=== PATIENT | male | born 1995 | race Two or more races ===

== ENCOUNTER → 2017-02-04 | Outpatient (REF) | payer OTHER | LOC: M LAB REF 16:59 | PROVIDERS: ATTEND Surgery | DX: Z20.2 Contact with and (suspected) exposure to infections with a predominantly sexual mode of transmission (principal) ==

== ENCOUNTER 2017-05-13 11:43 | Emergency (ER) | payer MEDICAID, OTHER ==
[2017-05-13] MEDS ORDERED: PHENYLEPHRINE INJ 10MG/ML VIAL (J2370) SC (13:00)
== END 2017-05-13 15:24 | disposition home or self-care (01) ==
LOC: M ED 11:43
DX: N48.30 Priapism, unspecified (principal); Z98.890 Other specified postprocedural states
CPT/HCPCS: 96372

== ENCOUNTER → 2017-06-15 | Outpatient (CLI) | payer MEDICAID | LOC: M OUTALCOH 07:55 | DX: Z13.9 Encounter for screening, unspecified (principal); F15.10 Other stimulant abuse, uncomplicated ==

== ENCOUNTER 2017-07-06 09:02 | Outpatient (RCR) | payer MEDICAID | END 2017-07-13 | LOC: M OUTALCOH 09:02 | DX: Z03.89 Encounter for observation for other suspected diseases and conditions ruled out (principal) | CPT/HCPCS: H0050 ==

== ENCOUNTER 2017-07-16 15:00 | Outpatient (RCR) | payer MEDICAID | END 2017-08-13 | LOC: M OUTALCOH 07-24 16:00 | DX: F15.10 Other stimulant abuse, uncomplicated (principal) ==

== ENCOUNTER → 2018-07-19 | Outpatient (REF) | payer MEDICAID, OTHER ==
[2018-07-19 19:35] LABS: APPEARANCE, URINE CLEAR (CLEAR); BACTERIA, URINE AUTO NEGATIVE (NEGATIVE); BILIRUBIN, URINE AUTO NEGATIVE (NEGATIVE); BLOOD, URINE BLOOD NEGATIVE (NEGATIVE); COLOR, URINE YELLOW (YELLOW); GLUCOSE, URINE (UA) AUTO NEGATIVE (NEGATIVE); KETONE, URINE AUTO NEGATIVE (NEGATIVE); LEUKOCYTE ESTERASE, URINE AUTO NEGATIVE (NEGATIVE); MUCUS, URINE SMALL (NEGATIVE); NITRITE, URINE AUTO NEGATIVE (NEGATIVE); PROTEIN, URINE AUTO NEGATIVE (NEGATIVE); RBC, URINE AUTO 0 /HPF (0-3); SPECIFIC GRAVITY URINE AUTO 1.019 (1.002-1.035); SQUAMOUS EPITHELIAL CELL UR AU 0 /HPF (0-6); UROBILINOGEN, URINE AUTO 0.2 mg/dL (0.0-2.0); WBC, URINE AUTO 0 /HPF (0-3)
[2018-07-19 19:38] LABS: BASO % 0.5 % (0.0-1.0); EOS # 0.1 10^3/uL (0.0-0.50); EOS % 1.4 % (0.0-3.0); HEMATOCRIT 45.6 % (42.0-52.0); HEMOGLOBIN 15.5 g/dl (13.5-17.5); LYMPH # 3.2 10^3/uL (1.5-6.5); LYMPH % 39.4 % (24.0-44.0); MEAN CORPUSCULAR VOLUME 91.2 fl (80.0-96.0); MONO # 0.6 10^3/uL (0.0-0.8); MONO % 7.4 % (0.0-5.0); NEUTROPHILS # 4.1 10^3/uL (1.8-7.7); NEUTROPHILS % 51.1 % (36.0-66.0); PLATELET COUNT, AUTOMATED 261 10^3/uL (150-450); WHITE BLOOD COUNT 8.1 10^3/uL (4.0-10.0)
[2018-07-19 19:53] LABS: ALBUMIN 3.9 GM/DL (3.2-5.2); ALT/SGPT 84 U/L (12-78); BILIRUBIN,TOTAL 0.4 MG/DL (0.2-1.0); BLOOD UREA NITROGEN 17 MG/DL (7-18); CALCIUM LEVEL 8.9 MG/DL (8.5-10.1); CARBON DIOXIDE LEVEL 27 MEQ/L (21-32); CHLORIDE LEVEL 110 MEQ/L (98-107); CHOLESTEROL LEVEL 183 MG/DL (<200); CHOLESTEROL RISK RATIO 4.159 (<5); FREE T4 1.11 NG/DL (0.76-1.46); GLOMERULAR FILTRATION RATE > 60.0 (>60); GLUCOSE, FASTING 100 MG/DL (70-100); HDL CHOLESTEROL 44 MG/DL (>40); LDL CHOLESTEROL 124 MG/DL (<100); NON-HDL-C 139 MG/DL; POTASSIUM SERUM 4.3 MEQ/L (3.5-5.1); SODIUM LEVEL 143 MEQ/L (136-145); TOTAL PROTEIN 7.9 GM/DL (6.4-8.2); TRIGLYCERIDES LEVEL 73 MG/DL (<150)
[2018-07-19 19:54] LABS: TOTAL 25(OH) VITAMIN D 11.9 NG/ML (30.0-100.0)
[2018-07-19 20:09] LABS: HEMOGLOBIN A1c 4.8 %
[2018-07-22 00:06] LABS: Lyme Disease IgG/IgM Antibodie <0.91 ISR (0.00-0.90); Lyme Disease IgM Ab Quantitati <0.80 index (0.00-0.79)
== END ==
LOC: M LAB REF 18:49
PROVIDERS: ATTEND Family Medicine
DX: Z13.228 Encounter for screening for other metabolic disorders (principal)

== ENCOUNTER 2018-07-28 19:28 | Emergency (ER) | payer OTHER ==
[~2018-07-28] VITALS: Ht 175.3 cm; Wt 127.3 kg
[2018-07-28 19:53] LABS: HEMATOCRIT 43.8 % (42.0-52.0); HEMOGLOBIN 14.9 g/dl (13.5-17.5); MEAN CORPUSCULAR VOLUME 91.3 fl (80.0-96.0); PLATELET COUNT, AUTOMATED 276 10^3/uL (150-450); WHITE BLOOD COUNT 11.8 10^3/uL (4.0-10.0)
[2018-07-28] MEDS ORDERED: ADACEL/BOOSTRIX VACCINE (DIPHTH/PERTUSS/ACELL/TETANUS)0.5ML SYR (90715) IM ONE (20:15)
[2018-07-28 20:17] LABS: ATYPICAL LYMPH 2 % (0-5); BASOPHILS 1 % (0-4); LYMPHOCYTES 41 % (16-52); MONOCYTES 8 % (0-8); NEUTROPHILS 48 % (35-75)
[2018-07-28 20:19] LABS: PLATELET ESTIMATE NORMAL (NORMAL)
[2018-07-28 20:33] LABS: ALBUMIN 4.4 GM/DL (3.2-5.2); ALT/SGPT 68 U/L (12-78); BILIRUBIN,DIRECT < 0.1 MG/DL (0.0-0.2); BILIRUBIN,TOTAL 0.6 MG/DL (0.2-1.0); BLOOD UREA NITROGEN 20 MG/DL (7-18); CALCIUM LEVEL 9.2 MG/DL (8.5-10.1); CARBON DIOXIDE LEVEL 28 MEQ/L (21-32); CHLORIDE LEVEL 106 MEQ/L (98-107); CREATININE FOR GFR 1.16 MG/DL (0.70-1.30); GLOMERULAR FILTRATION RATE > 60.0 (>60); GLUCOSE, FASTING 89 MG/DL (70-100); LIPASE 181 U/L (73-393); POTASSIUM SERUM 3.9 MEQ/L (3.5-5.1); SODIUM LEVEL 140 MEQ/L (136-145); TOTAL PROTEIN 7.3 GM/DL (6.4-8.2)
[2018-07-28] MEDS ORDERED: ISOVUE-370 76% 100ML VIAL (Q9967) As Ordered ONE (20:41)
[2018-07-28] MEDS ORDERED: LIDOCAINE 1% MDV 20ML VIAL As Ordered ONE (22:04)
[2018-07-28] MEDS ORDERED: LIDOCAINE 1% MDV 20ML VIAL SC ONE (22:15)
[2018-07-28 22:31] VITALS: BP 134/80
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
== END 2018-07-28 23:12 | disposition home or self-care (01) ==
LOC: M ED 19:28
DX: S31.119A Laceration without foreign body of abdominal wall, unspecified quadrant without penetration into peritoneal cavity, initial encounter (principal); W26.0XXA Contact with knife, initial encounter; Y92.89 Other specified places as the place of occurrence of the external cause; Y93.89 Activity, other specified; Y99.0 Civilian activity done for income or pay
CPT/HCPCS: 12001; 71260; 74177; 80047; 80048; 80076; 83690; 85025; 90471; 90715; 93041; 99284; Q9967

== ENCOUNTER 2018-08-11 14:42 | Emergency (ER) | payer OTHER ==
[~2018-08-11] VITALS: Ht 175.3 cm; Wt 127.3 kg
[2018-08-11 14:43] VITALS: BP 143/77
[2018-08-11] MEDS ORDERED: CYCL5TAB (15:01)
== END 2018-08-11 15:15 | disposition home or self-care (01) ==
LOC: M ED 14:42
DX: Z48.02 Encounter for removal of sutures (principal); Z79.899 Other long term (current) drug therapy

== ENCOUNTER 2021-11-03 10:24 | Inpatient (IN) | payer OTHER ==
[~2021-11-03] VITALS: Ht 175.3 cm; Wt 122.7 kg
[~2021-11-03 10:24] MED LIST: BUSP10TA PO; BUSP30TA PO; CYCL5TAB; FLUO20CA22 PO; FLUO40CA PO; HALO1TAB19 PO; HALO5TAB33 PO; HYDR50TA70 PO; MIRT-10 PO; MIRT-62 PO; PROP20TA PO; PROP20TA72 PO; QUET200T2 PO; QUET400T2 PO; TRAZ-252 PO
[2021-11-03] MEDS ORDERED: FLUoxetine 20MG CAP PO ONE (10:55)
[2021-11-03] MEDS ORDERED: busPIRone 10 MG TAB PO ONE (10:55)
[2021-11-03] MEDS ORDERED: QUEtiapine FUMARATE 200 MG TAB PO ONE ×2 (10:55→21:40)
[2021-11-03] MEDS ORDERED: PROPRANOLOL 20 MG TAB PO ONE (10:55)
[2021-11-03 11:01] LABS: HEMATOCRIT 44.5 % (42.0-52.0); HEMOGLOBIN 14.9 g/dl (13.5-17.5); MEAN CORPUSCULAR HEMOGLOBIN 31.1 pg (27.0-33.0); MEAN CORPUSCULAR HGB CONC 33.5 g/dl (32.0-36.5); MEAN CORPUSCULAR VOLUME 92.9 fl (80.0-96.0); PLATELET COUNT, AUTOMATED 297 10^3/uL (150-450); RED BLOOD COUNT 4.79 10^6/uL (4.30-6.10); WHITE BLOOD COUNT 12.9 10^3/uL (4.0-10.0)
[2021-11-03 11:31] LABS: AMPHETAMINES LEVEL URINE POSITIVE (NEGATIVE); BARBITURATES URINE NEGATIVE (NEGATIVE); BENZODIAZEPINES URINE NEGATIVE (NEGATIVE); CANNABINOIDS URINE POSITIVE (NEGATIVE); COCAINE METABOLITE URINE NEGATIVE (NEGATIVE); METHADONE URINE NEGATIVE (NEGATIVE); OPIATES URINE NEGATIVE (NEGATIVE); PHENCYCLIDINE URINE NEGATIVE (NEGATIVE)
[2021-11-03 11:41] LABS: RSV AMPLIFICATION NEGATIVE (NEGATIVE)
[2021-11-03 12:00] LABS: ACETAMINOPHEN LEVEL < 2.0 UG/ML (10.0-30.0); ALBUMIN 4.3 GM/DL (3.2-5.2); ALT/SGPT 49 U/L (12-78); BILIRUBIN,DIRECT 0.2 MG/DL (0.0-0.2); BILIRUBIN,TOTAL 0.6 MG/DL (0.2-1.0); BLOOD UREA NITROGEN 11 MG/DL (7-18); CALCIUM LEVEL 9.7 MG/DL (8.5-10.1); CARBON DIOXIDE LEVEL 26 MEQ/L (21-32); CHLORIDE LEVEL 106 MEQ/L (98-107); CREATININE FOR GFR 1.15 MG/DL (0.70-1.30); ETHYL ALCOHOL (ETHANOL) 0.004 % (0.000-0.010); GLOMERULAR FILTRATION RATE > 60.0 (>60); GLUCOSE, FASTING 104 MG/DL (70-100); POTASSIUM SERUM 4.2 MEQ/L (3.5-5.1); SALICYLATE LEVEL < 1.7 MG/DL (5.0-30.0); SODIUM LEVEL 138 MEQ/L (136-145)
[2021-11-03] MEDS ORDERED: HALO5TAB33 PO (21:41)
[2021-11-03] MEDS ORDERED: HYDR50TA70 PO (21:41)
[2021-11-03] MEDS ORDERED: PROP20TA72 PO (21:41)
[2021-11-03] MEDS ORDERED: QUET200T2 PO ×2 (21:41)
[2021-11-03] MEDS ORDERED: FLUO40CA PO (21:41)
[2021-11-03] MEDS ORDERED: BUSP30TA PO (21:41)
[2021-11-03] MEDS ORDERED: MIRT-62 PO (21:41)
[2021-11-03] MEDS ORDERED: TRAZ-252 PO (21:41)
[2021-11-03] MEDS ORDERED: PATIENT COMMENT (21:43)
[2021-11-03] MEDS ORDERED: HOME MED LIST COMPLETE! XX SCH (21:45)
[2021-11-04] MEDS ORDERED: hydrOXYzine 50 MG TAB PO PRN (07:20)
[2021-11-04] MEDS: busPIRone 10 MG TAB PO SCH ×2 (09:10→21:19)
[2021-11-04] MEDS: FLUoxetine 20MG CAP PO SCH (09:10)
[2021-11-04] MEDS: QUEtiapine FUMARATE 200 MG TAB PO SCH (09:10)
[2021-11-04] MEDS: PROPRANOLOL 20 MG TAB PO SCH (09:29)
[2021-11-04] MEDS ORDERED: traZODone 50 MG TAB PO SCH (21:00)
[2021-11-04] MEDS ORDERED: QUEtiapine FUMARATE 200 MG TAB PO SCH (21:00)
[2021-11-04] MEDS ORDERED: MIRTAZAPINE 15 MG TAB PO SCH (21:00)
[2021-11-05] MEDS: PROPRANOLOL 20 MG TAB PO SCH ×3 (00:31→11:43)
[2021-11-05] MEDS: busPIRone 10 MG TAB PO SCH (09:42)
[2021-11-05] MEDS: QUEtiapine FUMARATE 200 MG TAB PO SCH (09:42)
[2021-11-05] MEDS: FLUoxetine 20MG CAP PO SCH (09:43)
[2021-11-05] MEDS ORDERED: MOM 30ML SUSPENSION UDC PO PRN (16:15)
[2021-11-05] MEDS ORDERED: diphenhydrAMINE 25MG CAP PO PRN (16:15)
[2021-11-05] MEDS ORDERED: ACETAMINOPHEN TAB 650MG DOSE (2X325MG) PO PRN (16:15)
[2021-11-05] MEDS ORDERED: MAALOX 30 ML SUSP *UDC PO PRN (16:15)
[2021-11-06] MEDS ORDERED: MIRTAZAPINE 15 MG TAB PO ONE
[2021-11-06] MEDS ORDERED: traZODone 25MG PER 1/2 TABLET PO ONE
[2021-11-06] MEDS ORDERED: PROPRANOLOL 20 MG TAB PO ONE
[2021-11-06] MEDS ORDERED: busPIRone 10 MG TAB PO ONE
[2021-11-06] MEDS ORDERED: FLUoxetine 20MG CAP PO SCH (09:00)
[2021-11-06] MEDS ORDERED: PROPRANOLOL 20 MG TAB PO SCH (09:00)
[2021-11-06] MEDS ORDERED: NICOTINE 21MG/24HR 1 EA TRANSDERMAL TD SCH ×2 (09:00)
[2021-11-06] MEDS ORDERED: QUEtiapine FUMARATE 200 MG TAB PO SCH ×2 (09:00→21:00)
[2021-11-06] MEDS ORDERED: busPIRone 10 MG TAB PO SCH (09:00)
[2021-11-06] MEDS ORDERED: hydrOXYzine 50 MG TAB PO PRN (10:45)
[2021-11-06] MEDS ORDERED: MOM 30ML SUSPENSION UDC PO PRN (11:55)
[2021-11-06] MEDS ORDERED: MAALOX 30 ML SUSP *UDC PO PRN (11:55)
[2021-11-06 12:37] LABS: RSV AMPLIFICATION NEGATIVE (NEGATIVE)
[2021-11-06] MEDS: LURASIDONE 20 MG TAB (LATUDA) PO SCH (17:48)
[2021-11-06 17:59] VITALS: BP 169/83
[2021-11-06] MEDS: MIRTAZAPINE 15 MG TAB PO SCH (20:06)
[2021-11-06] MEDS: PROPRANOLOL 20 MG TAB PO SCH (20:06)
[2021-11-06] MEDS: busPIRone 10 MG TAB PO SCH (20:06)
[2021-11-06] MEDS: ACETAMINOPHEN TAB 650MG DOSE (2X325MG) PO PRN (20:07)
[2021-11-06] MEDS ORDERED: traZODone 50 MG TAB PO SCH (21:00)
[2021-11-06] MEDS ORDERED: MIRTAZAPINE 15 MG TAB PO SCH (21:00)
[2021-11-07] MEDS: hydrOXYzine 50 MG TAB PO PRN ×2 (00:35→11:45)
[2021-11-07] MEDS: traZODone 50 MG TAB PO PRN ×2 (01:20→20:17)
[2021-11-07] MEDS: ACETAMINOPHEN TAB 650MG DOSE (2X325MG) PO PRN ×2 (06:29→18:28)
[2021-11-07 07:04] VITALS: BP 141/79
[2021-11-07] MEDS: NICOTINE 21MG/24HR 1 EA TRANSDERMAL TD SCH (08:10)
[2021-11-07] MEDS: PROPRANOLOL 20 MG TAB PO SCH ×2 (08:10→20:17)
[2021-11-07] MEDS: busPIRone 10 MG TAB PO SCH ×2 (08:10→20:17)
[2021-11-07] MEDS: FLUoxetine 20MG CAP PO SCH (08:11)
[2021-11-07 08:21] VITALS: BP 141/79
[2021-11-07] MEDS: LURASIDONE 20 MG TAB (LATUDA) PO SCH (17:44)
[2021-11-07 18:35] VITALS: BP 127/60
[2021-11-07] MEDS: MIRTAZAPINE 15 MG TAB PO SCH (20:17)
[2021-11-08] MEDS: hydrOXYzine 50 MG TAB PO PRN ×2 (02:34→16:20)
[2021-11-08] MEDS: ACETAMINOPHEN TAB 650MG DOSE (2X325MG) PO PRN ×2 (06:40→13:42)
[2021-11-08 06:41] VITALS: BP 118/75
[2021-11-08] MEDS: FLUoxetine 20MG CAP PO SCH (08:09)
[2021-11-08] MEDS: busPIRone 10 MG TAB PO SCH ×2 (08:09→20:11)
[2021-11-08] MEDS: NICOTINE 21MG/24HR 1 EA TRANSDERMAL TD SCH (08:10)
[2021-11-08] MEDS: PROPRANOLOL 20 MG TAB PO SCH ×2 (08:10→20:11)
[2021-11-08] MEDS ORDERED: LURASIDONE HCL 40MG TAB (LATUDA) PO SCH (18:00)
[2021-11-08 19:12] VITALS: BP 148/87
[2021-11-08] MEDS: MIRTAZAPINE 15 MG TAB PO SCH (20:12)
[2021-11-08] MEDS ORDERED: traZODone 50 MG TAB PO SCH (21:00)
[2021-11-09] MEDS: hydrOXYzine 50 MG TAB PO PRN (02:38)
[2021-11-09 06:33] VITALS: BP 138/75
[2021-11-09] MEDS: FLUoxetine 20MG CAP PO SCH (08:13)
[2021-11-09] MEDS: PROPRANOLOL 20 MG TAB PO SCH ×2 (08:13→20:29)
[2021-11-09] MEDS: busPIRone 10 MG TAB PO SCH ×2 (08:13→20:29)
[2021-11-09] MEDS: NICOTINE 21MG/24HR 1 EA TRANSDERMAL TD SCH (08:14)
[2021-11-09] MEDS: IBUPROFEN 800 MG TAB PO PRN (08:14)
[2021-11-09] MEDS: ACETAMINOPHEN TAB 650MG DOSE (2X325MG) PO PRN (14:10)
[2021-11-09] MEDS: LURASIDONE 20 MG TAB (LATUDA) PO SCH (17:54)
[2021-11-09] MEDS: traZODone 100 MG TAB PO SCH (20:24)
[2021-11-10] MEDS: hydrOXYzine 50 MG TAB PO PRN (02:34)
[2021-11-10 06:23] VITALS: BP 128/60
[2021-11-10] MEDS: busPIRone 10 MG TAB PO SCH ×2 (08:49→20:05)
[2021-11-10] MEDS: FLUoxetine 20MG CAP PO SCH (08:49)
[2021-11-10] MEDS: PROPRANOLOL 20 MG TAB PO SCH ×2 (08:50→20:06)
[2021-11-10] MEDS: NICOTINE 21MG/24HR 1 EA TRANSDERMAL TD SCH (08:50)
[2021-11-10] MEDS: IBUPROFEN 800 MG TAB PO PRN (09:24)
[2021-11-10] MEDS: LURASIDONE 20 MG TAB (LATUDA) PO SCH (17:14)
[2021-11-10 19:54] VITALS: BP 149/68
[2021-11-10] MEDS: traZODone 100 MG TAB PO SCH (20:05)
[2021-11-10] MEDS: MIRTAZAPINE 15 MG TAB PO PRN (20:05)
[2021-11-11] MEDS: hydrOXYzine 50 MG TAB PO PRN (01:20)
[2021-11-11 06:23] VITALS: BP 105/59
[2021-11-11] MEDS: busPIRone 10 MG TAB PO SCH ×2 (07:59→20:33)
[2021-11-11] MEDS: LURASIDONE 20 MG TAB (LATUDA) PO SCH ×2 (07:59→17:52)
[2021-11-11] MEDS: FLUoxetine 20MG CAP PO SCH (08:03)
[2021-11-11] MEDS: PROPRANOLOL 20 MG TAB PO SCH ×2 (08:03→20:33)
[2021-11-11] MEDS: NICOTINE 21MG/24HR 1 EA TRANSDERMAL TD SCH (08:49)
[2021-11-11] MEDS: IBUPROFEN 800 MG TAB PO PRN ×2 (09:09→18:27)
[2021-11-11] MEDS: OLANZapine ORAL DISINTEGRATING TAB 5MG PO PRN (15:46)
[2021-11-11 16:45] VITALS: BP 149/65
[2021-11-11] MEDS: ACETAMINOPHEN TAB 650MG DOSE (2X325MG) PO PRN (16:58)
[2021-11-11] MEDS: traZODone 100 MG TAB PO SCH (20:31)
[2021-11-11] MEDS: MIRTAZAPINE 15 MG TAB PO PRN (20:33)
[2021-11-12] MEDS: hydrOXYzine 50 MG TAB PO PRN (03:17)
[2021-11-12 06:23] VITALS: BP 115/62
[2021-11-12] MEDS: busPIRone 10 MG TAB PO SCH (08:05)
[2021-11-12 08:06] VITALS: BP 115/62
[2021-11-12] MEDS: FLUoxetine 20MG CAP PO SCH (08:06)
[2021-11-12] MEDS: PROPRANOLOL 20 MG TAB PO SCH (08:06)
[2021-11-12] MEDS: NICOTINE 21MG/24HR 1 EA TRANSDERMAL TD SCH (08:07)
[2021-11-12] MEDS: OLANZapine ORAL DISINTEGRATING TAB 5MG PO PRN (08:10)
[2021-11-12] MEDS: LURASIDONE 20 MG TAB (LATUDA) PO SCH (08:12)
[2021-11-12] MEDS ORDERED: NICO21PAT TD (09:35)
[2021-11-12] MEDS ORDERED: ZYPR5TAB2 PO (09:35)
[2021-11-12] MEDS ORDERED: LATU20TA PO ×2 (09:35)
[2021-11-12] MEDS ORDERED: TRAZ-257 PO (09:35)
[2021-11-12] MEDS ORDERED: FLUO20CA22 PO (09:35)
[2021-11-12] MEDS: IBUPROFEN 800 MG TAB PO PRN (11:12)
[2021-11-13] MEDS ORDERED: LATU1TAB PO (20:38)
== END 2021-11-12 12:25 | disposition home or self-care (01) | DRG 750 ==
LOC: M ED 10:24 → EDBD 10:24 → M ED INP 11-05 16:14 → UNDOADMIN 11-05 16:14 → M ED INP 11-06 11:55 → M PSY 11-06 13:02
PROVIDERS: ADMIT Student in an Organized Health Care Education/Training Program; ATTEND Psychiatry & Neurology Psychiatry
DX: F20.9 Schizophrenia, unspecified (principal); E66.01 Morbid (severe) obesity due to excess calories; I10 Essential (primary) hypertension; F12.90 Cannabis use, unspecified, uncomplicated; F43.10 Post-traumatic stress disorder, unspecified; F15.90 Other stimulant use, unspecified, uncomplicated; Z79.899 Other long term (current) drug therapy; Z68.39 Body mass index [BMI] 39.0-39.9, adult; F41.9 Anxiety disorder, unspecified

== ENCOUNTER 2021-11-19 10:30 | Inpatient (IN) | payer OTHER ==
[~2021-11-19] VITALS: Ht 175.3 cm; Wt 97.5 kg
[~2021-11-19 10:30] MED LIST changes: +LATU1TAB PO; +LATU20TA PO; +NICO21PAT TD; +PATIENT COMMENT; +TRAZ-257 PO; +ZYPR5TAB2 PO
[2021-11-19 11:21] LABS: HEMATOCRIT 40.5 % (42.0-52.0); HEMOGLOBIN 13.7 g/dl (13.5-17.5); MEAN CORPUSCULAR HEMOGLOBIN 31.1 pg (27.0-33.0); MEAN CORPUSCULAR HGB CONC 33.8 g/dl (32.0-36.5); MEAN CORPUSCULAR VOLUME 91.8 fl (80.0-96.0); PLATELET COUNT, AUTOMATED 251 10^3/uL (150-450); RED BLOOD COUNT 4.41 10^6/uL (4.30-6.10); WHITE BLOOD COUNT 10.9 10^3/uL (4.0-10.0)
[2021-11-19 11:54] LABS: RSV AMPLIFICATION NEGATIVE (NEGATIVE)
[2021-11-19 12:11] LABS: AMPHETAMINES LEVEL URINE POSITIVE (NEGATIVE); BARBITURATES URINE NEGATIVE (NEGATIVE); BENZODIAZEPINES URINE NEGATIVE (NEGATIVE); CANNABINOIDS URINE POSITIVE (NEGATIVE); COCAINE METABOLITE URINE NEGATIVE (NEGATIVE); METHADONE URINE NEGATIVE (NEGATIVE); OPIATES URINE NEGATIVE (NEGATIVE); PHENCYCLIDINE URINE NEGATIVE (NEGATIVE)
[2021-11-19 12:16] LABS: ACETAMINOPHEN LEVEL < 2.0 UG/ML (10.0-30.0); ALBUMIN 4.1 GM/DL (3.2-5.2); ALT/SGPT 32 U/L (12-78); ALT/SGPT 33 U/L (12-78); BILIRUBIN,DIRECT 0.1 MG/DL (0.0-0.2); BILIRUBIN,DIRECT 0.2 MG/DL (0.0-0.2); BILIRUBIN,TOTAL 0.4 MG/DL (0.2-1.0); BILIRUBIN,TOTAL 0.5 MG/DL (0.2-1.0); BLOOD UREA NITROGEN 18 MG/DL (7-18); CALCIUM LEVEL 9.3 MG/DL (8.5-10.1); CARBON DIOXIDE LEVEL 27 MEQ/L (21-32); CHLORIDE LEVEL 109 MEQ/L (98-107); CREATININE FOR GFR 0.89 MG/DL (0.70-1.30); ETHYL ALCOHOL (ETHANOL) 0.005 % (0.000-0.010); ETHYL ALCOHOL (ETHANOL) 0.006 % (0.000-0.010); GLOMERULAR FILTRATION RATE > 60.0 (>60); GLUCOSE, FASTING 82 MG/DL (70-100); POTASSIUM SERUM 3.9 MEQ/L (3.5-5.1); SALICYLATE LEVEL < 1.7 MG/DL (5.0-30.0); SODIUM LEVEL 140 MEQ/L (136-145); THYROID STIMULATING HORMONE 0.564 uIU/ML (0.358-3.740); THYROID STIMULATING HORMONE 0.602 uIU/ML (0.358-3.740); TOTAL PROTEIN 7.5 GM/DL (6.4-8.2)
[2021-11-19] MEDS ORDERED: OLAN1TAB16 PO (12:40)
[2021-11-19] MEDS ORDERED: LATU40TA2 PO (12:40)
[2021-11-19] MEDS ORDERED: LATU1TAB PO (12:40)
[2021-11-19] MEDS ORDERED: NICO21DI37 TD (12:40)
[2021-11-19] MEDS ORDERED: HOME MED LIST COMPLETE! XX SCH (12:45)
[2021-11-19] MEDS ORDERED: OLANZapine ORAL DISINTEGRATING TAB 5MG PO ONE (16:25)
[2021-11-20] MEDS ORDERED: MIRTAZAPINE 15 MG TAB PO ONE ×2 (03:05→19:35)
[2021-11-20] MEDS ORDERED: busPIRone 10 MG TAB PO ONE ×2 (03:05→19:35)
[2021-11-20] MEDS ORDERED: LURASIDONE 20 MG TAB (LATUDA) PO ONE ×2 (03:05→19:35)
[2021-11-20] MEDS ORDERED: FLUoxetine 20MG CAP PO ONE (03:05)
[2021-11-20] MEDS: NICOTINE 21MG/24HR 1 EA TRANSDERMAL TD ONE ×2 (03:15→03:24)
[2021-11-20] MEDS ORDERED: OLANZapine 5 MG TAB PO ONE (19:35)
[2021-11-20] MEDS ORDERED: PROPRANOLOL 20 MG TAB PO ONE (19:35)
[2021-11-20] MEDS ORDERED: hydrOXYzine 50 MG TAB PO ONE (19:35)
[2021-11-21] MEDS: LURASIDONE HCL 40MG TAB (LATUDA) PO SCH (09:42)
[2021-11-21] MEDS: FLUoxetine 20MG CAP PO SCH (09:42)
[2021-11-21] MEDS: busPIRone 10 MG TAB PO SCH ×2 (11:58→22:05)
[2021-11-21] MEDS: PROPRANOLOL 20 MG TAB PO SCH ×2 (11:59→21:09)
[2021-11-21] MEDS: OLANZapine 5 MG TAB PO SCH ×2 (11:59→21:09)
[2021-11-21] MEDS: LURASIDONE 20 MG TAB (LATUDA) PO SCH (17:56)
[2021-11-21] MEDS ORDERED: LURASIDONE 20 MG TAB (LATUDA) PO SCH (18:00)
[2021-11-21] MEDS: MIRTAZAPINE 15 MG TAB PO SCH (21:09)
[2021-11-22] MEDS ORDERED: OLANZapine 10 MG TAB PO ONE (05:45)
[2021-11-22] MEDS ORDERED: LORazepam 2 MG/ML VIAL IM STA (07:08)
[2021-11-22] MEDS ORDERED: diphenhydrAMINE 50MG/ML VIAL (J1200) IM STA (07:08)
[2021-11-22] MEDS ORDERED: HALOPERIDOL 5MG/ML VIAL (J1630 PER 1) IM STA (07:08)
[2021-11-22] MEDS ORDERED: LORazepam 2 MG TAB PO STA (07:19)
[2021-11-22] MEDS ORDERED: diphenhydrAMINE 50MG CAP PO ONE (07:20)
[2021-11-22] MEDS: PROPRANOLOL 20 MG TAB PO SCH ×2 (07:42→23:08)
[2021-11-22] MEDS: busPIRone 10 MG TAB PO SCH ×2 (07:42→23:07)
[2021-11-22] MEDS: LURASIDONE HCL 40MG TAB (LATUDA) PO SCH (07:42)
[2021-11-22] MEDS: FLUoxetine 20MG CAP PO SCH (07:43)
[2021-11-22] MEDS: OLANZapine 5 MG TAB PO SCH ×2 (07:43→23:07)
[2021-11-22] MEDS ORDERED: LURASIDONE HCL 40MG TAB (LATUDA) PO SCH (08:00)
[2021-11-22] MEDS ORDERED: FLUoxetine 20MG CAP PO SCH (09:00)
[2021-11-22] MEDS: LURASIDONE 20 MG TAB (LATUDA) PO SCH (18:11)
[2021-11-22] MEDS: MIRTAZAPINE 15 MG TAB PO SCH (23:07)
[2021-11-23] MEDS: LURASIDONE HCL 40MG TAB (LATUDA) PO SCH (08:00)
[2021-11-23] MEDS ORDERED: LORazepam 2 MG/ML VIAL IM STA (08:09)
[2021-11-23] MEDS ORDERED: OLANZapine INTRAMUSCULAR 10MG VIAL IM ONE (08:10)
[2021-11-23] MEDS: busPIRone 10 MG TAB PO SCH ×2 (08:11→21:14)
[2021-11-23] MEDS: PROPRANOLOL 20 MG TAB PO SCH ×2 (08:12→21:18)
[2021-11-23] MEDS: FLUoxetine 20MG CAP PO SCH (08:32)
[2021-11-23] MEDS: OLANZapine 5 MG TAB PO SCH ×2 (08:33→21:14)
[2021-11-23] MEDS: LURASIDONE 20 MG TAB (LATUDA) PO SCH (18:00)
[2021-11-23] MEDS: MIRTAZAPINE 15 MG TAB PO SCH (21:14)
[2021-11-24] MEDS ORDERED: diphenhydrAMINE 50MG/ML VIAL (J1200) IM ONE (07:40)
[2021-11-24] MEDS ORDERED: HALOPERIDOL 5MG/ML VIAL (J1630 PER 1) IM ONE (07:40)
[2021-11-24] MEDS ORDERED: LORazepam 2 MG/ML VIAL IM STA (07:40)
[2021-11-24] MEDS: LURASIDONE HCL 40MG TAB (LATUDA) PO SCH (08:00)
[2021-11-24] MEDS: FLUoxetine 20MG CAP PO SCH (09:00)
[2021-11-24] MEDS: OLANZapine 5 MG TAB PO SCH ×2 (09:00→21:00)
[2021-11-24] MEDS: PROPRANOLOL 20 MG TAB PO SCH ×2 (09:00→21:00)
[2021-11-24] MEDS: busPIRone 10 MG TAB PO SCH ×2 (09:29→21:00)
[2021-11-24] MEDS: LURASIDONE 20 MG TAB (LATUDA) PO SCH (18:03)
[2021-11-24] MEDS: MIRTAZAPINE 15 MG TAB PO SCH (21:00)
[2021-11-25] MEDS ORDERED: hydrOXYzine 50 MG TAB PO STA (04:42)
[2021-11-25] MEDS ORDERED: diphenhydrAMINE 50MG/ML VIAL (J1200) IM ONE (06:00)
[2021-11-25] MEDS ORDERED: MIDAZOLAM INJ 2MG/2ML VIAL (J2250 PER 1MG) IM ONE (06:00)
[2021-11-25] MEDS ORDERED: HALOPERIDOL 5MG/ML VIAL (J1630 PER 1) IM ONE (06:00)
[2021-11-25] MEDS: busPIRone 10 MG TAB PO SCH ×2 (09:02→21:55)
[2021-11-25] MEDS: FLUoxetine 20MG CAP PO SCH (09:02)
[2021-11-25] MEDS: LURASIDONE HCL 40MG TAB (LATUDA) PO SCH (09:02)
[2021-11-25] MEDS: OLANZapine 5 MG TAB PO SCH ×2 (09:02→21:55)
[2021-11-25] MEDS: PROPRANOLOL 20 MG TAB PO SCH ×2 (09:03→22:00)
[2021-11-25] MEDS: LURASIDONE 20 MG TAB (LATUDA) PO SCH (17:47)
[2021-11-25] MEDS: MIRTAZAPINE 15 MG TAB PO SCH (21:55)
[2021-11-26] MEDS ORDERED: hydrOXYzine 50 MG TAB PO ONE (04:40)
[2021-11-26] MEDS: FLUoxetine 20MG CAP PO SCH (08:22)
[2021-11-26] MEDS: OLANZapine 5 MG TAB PO SCH ×2 (08:22→20:23)
[2021-11-26] MEDS: LURASIDONE HCL 40MG TAB (LATUDA) PO SCH (08:22)
[2021-11-26] MEDS: busPIRone 10 MG TAB PO SCH ×2 (08:22→20:23)
[2021-11-26] MEDS: PROPRANOLOL 20 MG TAB PO SCH ×2 (09:00→20:25)
[2021-11-26] MEDS: LURASIDONE 20 MG TAB (LATUDA) PO SCH (18:32)
[2021-11-26] MEDS: MIRTAZAPINE 15 MG TAB PO SCH (20:23)
[2021-11-26] MEDS ORDERED: traZODone 100 MG TAB PO SCH (21:00)
[2021-11-27] MEDS ORDERED: LORazepam 2 MG/ML VIAL IM STA (05:44)
[2021-11-27 05:46] LABS: RSV AMPLIFICATION NEGATIVE (NEGATIVE)
[2021-11-27] MEDS ORDERED: LORazepam 2 MG/ML VIAL As Ordered ONE (05:46)
[2021-11-27] MEDS: LURASIDONE HCL 40MG TAB (LATUDA) PO SCH (08:00)
[2021-11-27] MEDS: PROPRANOLOL 20 MG TAB PO SCH ×2 (08:33→20:04)
[2021-11-27] MEDS: FLUoxetine 20MG CAP PO SCH (08:33)
[2021-11-27] MEDS: OLANZapine 5 MG TAB PO SCH ×2 (08:33→20:04)
[2021-11-27] MEDS: busPIRone 10 MG TAB PO SCH ×2 (08:33→20:04)
[2021-11-27] MEDS: NICOTINE 21MG/24HR 1 EA TRANSDERMAL TD SCH (09:00)
[2021-11-27] MEDS ORDERED: MAALOX 30 ML SUSP *UDC PO PRN (11:15)
[2021-11-27] MEDS ORDERED: traZODone 50 MG TAB PO PRN (11:15)
[2021-11-27] MEDS ORDERED: MOM 30ML SUSPENSION UDC PO PRN (11:15)
[2021-11-27 13:20] VITALS: BP 137/72
[2021-11-27] MEDS: LURASIDONE 20 MG TAB (LATUDA) PO SCH (17:47)
[2021-11-27] MEDS: diphenhydrAMINE 25MG CAP PO PRN (19:26)
[2021-11-27] MEDS: MIRTAZAPINE 15 MG TAB PO SCH (20:04)
[2021-11-28] MEDS: hydrOXYzine 50 MG TAB PO PRN ×2 (03:38→12:58)
[2021-11-28 06:09] VITALS: BP 133/63
[2021-11-28] MEDS: NICOTINE 21MG/24HR 1 EA TRANSDERMAL TD SCH (08:24)
[2021-11-28] MEDS: busPIRone 10 MG TAB PO SCH ×2 (08:29→20:00)
[2021-11-28] MEDS: FLUoxetine 20MG CAP PO SCH (08:30)
[2021-11-28] MEDS: OLANZapine 5 MG TAB PO SCH ×2 (08:30→19:57)
[2021-11-28] MEDS: LURASIDONE HCL 40MG TAB (LATUDA) PO SCH (08:30)
[2021-11-28] MEDS: PROPRANOLOL 20 MG TAB PO SCH ×2 (08:33→20:02)
[2021-11-28] MEDS: diphenhydrAMINE 25MG CAP PO PRN ×2 (08:54→19:59)
[2021-11-28] MEDS: IBUPROFEN 400MG TAB PO PRN ×2 (08:57→15:56)
[2021-11-28] MEDS ORDERED: NICOTINE 21MG/24HR 1 EA TRANSDERMAL TD SCH (09:00)
[2021-11-28] MEDS: NICOTINE POLACRILEX 2 MG GUM PO PRN ×2 (10:29→15:56)
[2021-11-28] MEDS: LURASIDONE 20 MG TAB (LATUDA) PO SCH (17:37)
[2021-11-28 18:28] VITALS: BP 134/76
[2021-11-28] MEDS: MIRTAZAPINE 15 MG TAB PO SCH (20:00)
[2021-11-28] MEDS ORDERED: QUEtiapine FUMARATE 200 MG TAB PO SCH (21:00)
[2021-11-29] MEDS: hydrOXYzine 50 MG TAB PO PRN (06:49)
[2021-11-29 06:50] VITALS: BP 113/54
[2021-11-29] MEDS: LURASIDONE HCL 40MG TAB (LATUDA) PO SCH (08:04)
[2021-11-29 08:05] VITALS: BP 113/54
[2021-11-29] MEDS: busPIRone 10 MG TAB PO SCH (08:05)
[2021-11-29] MEDS: FLUoxetine 20MG CAP PO SCH (08:05)
[2021-11-29] MEDS: OLANZapine 5 MG TAB PO SCH (08:05)
[2021-11-29] MEDS: PROPRANOLOL 20 MG TAB PO SCH (08:05)
[2021-11-29] MEDS: NICOTINE POLACRILEX 2 MG GUM PO PRN (08:05)
[2021-11-29] MEDS ORDERED: NICO2GUM PO (10:26)
[2021-11-29] MEDS ORDERED: FLUO40CA PO (10:26)
[2021-11-29] MEDS ORDERED: LATU40TA2 PO (10:26)
[2021-11-29] MEDS ORDERED: BUSP30TA PO (10:26)
[2021-11-29] MEDS ORDERED: OLAN1TAB16 PO (10:26)
[2021-11-29] MEDS ORDERED: PROP20TA72 PO (10:26)
[2021-11-29] MEDS ORDERED: LATU1TAB PO (10:26)
[2021-11-29] MEDS ORDERED: MIRT-62 PO (10:26)
[2021-11-29] MEDS ORDERED: HYDR50TA70 PO (10:26)
[2021-11-29] MEDS ORDERED: QUET400T2 PO (10:27)
[2021-11-29] MEDS: diphenhydrAMINE 25MG CAP PO PRN (10:35)
== END 2021-11-29 13:17 | disposition home or self-care (01) | DRG 750 ==
LOC: M ED 10:30 → UNDOADMIN 10:31 → M ED INP 10:31 → M PSY 11-27 13:15
PROVIDERS: ADMIT Student in an Organized Health Care Education/Training Program; ATTEND Student in an Organized Health Care Education/Training Program
DX: F20.9 Schizophrenia, unspecified (principal); F15.959 Other stimulant use, unspecified with stimulant-induced psychotic disorder, unspecified; E11.9 Type 2 diabetes mellitus without complications; I10 Essential (primary) hypertension; Z56.0 Unemployment, unspecified; Z59.00 Homelessness unspecified; Z91.19 Patient's noncompliance with other medical treatment and regimen; Z20.822 Contact with and (suspected) exposure to COVID-19; E66.9 Obesity, unspecified; Z68.41 Body mass index [BMI] 40.0-44.9, adult; F17.200 Nicotine dependence, unspecified, uncomplicated

== ENCOUNTER → 2022-05-26 | Outpatient (REF) | payer OTHER ==
[~2022-05-26] MED LIST changes: +LATU40TA2 PO; +NICO21DI37 TD; +NICO2GUM PO; +OLAN1TAB16 PO
== END ==
LOC: M LAB REF 16:09
PROVIDERS: ATTEND Nurse Practitioner Family
DX: Z11.9 Encounter for screening for infectious and parasitic diseases, unspecified (principal)

== ENCOUNTER → 2022-06-16 | Outpatient (REF) | payer OTHER ==
[2022-06-17 15:10] LABS: APPEARANCE, URINE CLEAR (CLEAR); BACTERIA, URINE AUTO NEGATIVE (NEGATIVE); BILIRUBIN, URINE AUTO NEGATIVE (NEGATIVE); BLOOD, URINE BLOOD NEGATIVE (NEGATIVE); COLOR, URINE YELLOW (YELLOW); GLUCOSE, URINE (UA) AUTO NEGATIVE (NEGATIVE); KETONE, URINE AUTO NEGATIVE (NEGATIVE); LEUKOCYTE ESTERASE, URINE AUTO NEGATIVE (NEGATIVE); NITRITE, URINE AUTO NEGATIVE (NEGATIVE); PROTEIN, URINE AUTO NEGATIVE (NEGATIVE); RBC, URINE AUTO 0 /HPF (0-3); SPECIFIC GRAVITY URINE AUTO 1.024 (1.002-1.035); SQUAMOUS EPITHELIAL CELL UR AU 0 /HPF (0-6); UROBILINOGEN, URINE AUTO 0.2 mg/dL (0.0-2.0); WBC, URINE AUTO 0 /HPF (0-3)
[2022-06-17 16:37] LABS: GC DNA AMPLIFICATION NEGATIVE (NEGATIVE)
== END ==
LOC: M LAB REF 12:24
PROVIDERS: ATTEND Nurse Practitioner Family
DX: F52.21 Male erectile disorder (principal)

== ENCOUNTER → 2022-07-15 | Outpatient (CLI) | payer OTHER | LOC: M RAD 13:51 | PROVIDERS: ATTEND Nurse Practitioner Family | DX: K40.90 Unilateral inguinal hernia, without obstruction or gangrene, not specified as recurrent (principal) ==

== ENCOUNTER → 2022-08-14 | Outpatient (REF) | payer OTHER ==
[2022-08-14 16:51] LABS: BASO % 0.5 % (0.0-1.0); EOS # 0.1 10^3/uL (0.0-0.5); EOS % 0.9 % (0.0-3.0); HEMATOCRIT 42.3 % (42.0-52.0); HEMOGLOBIN 14.1 g/dl (13.5-17.5); LYMPH # 3.3 10^3/uL (1.5-5.0); LYMPH % 38.5 % (24.0-44.0); MEAN CORPUSCULAR HEMOGLOBIN 30.1 pg (27.0-33.0); MEAN CORPUSCULAR HGB CONC 33.3 g/dl (32.0-36.5); MEAN CORPUSCULAR VOLUME 90.4 fl (80.0-96.0); MONO # 0.8 10^3/uL (0.0-0.8); NEUTROPHILS # 4.3 10^3/uL (1.5-8.5); NEUTROPHILS % 50.9 % (36.0-66.0); PLATELET COUNT, AUTOMATED 244 10^3/uL (150-450); RED BLOOD COUNT 4.68 10^6/uL (4.30-6.10); WHITE BLOOD COUNT 8.4 10^3/uL (4.0-10.0)
[2022-08-14 17:36] LABS: HEMOGLOBIN A1c 4.5 % (4.0-6.0)
== END ==
LOC: M LAB REF 16:30
PROVIDERS: ATTEND Nurse Practitioner Family
DX: Z68.36 Body mass index [BMI] 36.0-36.9, adult (principal); K40.90 Unilateral inguinal hernia, without obstruction or gangrene, not specified as recurrent

== ENCOUNTER → 2022-11-14 | Outpatient (REF) | payer OTHER, MEDICAID ==
[2022-11-14 14:52] LABS: TOTAL 25(OH) VITAMIN D 33.3 NG/ML (20.0-100.0)
[2022-11-14 15:27] LABS: HIV 1&2 SCREEN NEGATIVE (NEGATIVE)
== END ==
LOC: M LAB REF 12:32
PROVIDERS: ATTEND Nurse Practitioner Family
DX: E55.9 Vitamin D deficiency, unspecified (principal); Z11.9 Encounter for screening for infectious and parasitic diseases, unspecified

== ENCOUNTER → 2022-11-24 | Outpatient (REF) | payer OTHER, MEDICAID ==
[~2022-11-24] MED LIST changes: -MIRT-62 PO; +MIRT-88 PO
[2022-11-24 18:17] LABS: BLOOD UREA NITROGEN 6 MG/DL (9-23); CALCIUM LEVEL 8.6 MG/DL (8.5-10.1); CARBON DIOXIDE LEVEL 25 MMOL/L (20-31); CHLORIDE LEVEL 105 MMOL/L (98-107); CREATININE FOR GFR 1.02 MG/DL (0.70-1.30); GLOMERULAR FILTRATION RATE > 60.0 (>60); GLUCOSE, FASTING 80 MG/DL (60-100); POTASSIUM SERUM 4.4 MMOL/L (3.5-5.1); SODIUM LEVEL 140 MMOL/L (136-145); THYROID STIMULATING HORMONE 1.706 uIU/ML (0.55-4.78)
== END ==
LOC: M LAB REF 16:29
PROVIDERS: ATTEND Nurse Practitioner Family
DX: R63.5 Abnormal weight gain (principal)